=== PATIENT | female | born 1945 | race Caucasian/White ===

== ENCOUNTER 2017-08-01 07:55 | Day surgery (SDC) | payer MEDICARE, OTHER ==
[~2017-08-01] VITALS: Ht 172.7 cm; Wt 117.9 kg
[~2017-08-01 07:55] MED LIST: ASPIRIN EC81 MG PO; ATENOLOL25 MG PO; B COMPLETE1 EACH PO; CALCIUM500 MG PO; COQ-10100 MG PO; HYDROCODON-ACE1 EA11 PO; IRON325 M1 PO; LEVOTHYROXINE50 MCG PO; MAGNESIUM250 MG PO; MIRALAX17 GM PO; MULTI VITAMIN1 EACH PO; NORCO 10-325 T1 EACH PO; NORCO 7.5-3251 EACH PO; OMEPRAZOLE20 MG PO; OXYCODONE HCL5 MG PO; RANITIDINE HCL150 MG PO; TRAMADOL HCL50 MG PO; VITAMIN B122500 MCG PO; VITAMIN C500 M1 PO; VITAMIN D31000 UNI2 PO; XARELTO10 MG PO
--- NOTE | 2017-08-01 10:11 | NUR ---
08/01/17 Abilio1 Palmira Fragoso 1003 PT ARRIVED DROWSY ON 6L VIA MASK. PT TLAKNG TO RN, DENIES PAIN AND NAUSEA. RESP EVEN AND UNLABORED. 1007 MD AT BEDSIDE.
--- NOTE | 2017-08-01 12:00 | NUR ---
1030: PATIENT BACK IN DAY SURGERY ROOM FROM PACU. C/O PAIN 04/15. DESCRIBES THROAT PAIN "SORE AND SCRATCHY". DECLINES PAIN MEDS AT THIS TIME. IV SITE WNL. SCDs ON. CALL LIGHT WITHIN REACH. WATER PLACED AT BEDSIDE. 1115: PATIENT ASSISTED OOB AND TO BATHROOM. GAIT STEADY. VOID WITHOUT DIFFICULTY. GAIT STEADY BACK TO ROOM. PATIENT GETTING DRESSED. 1130: VS CHECKED. IV DC'D WNL. TIP INTACT. DRESSING APPLIED. DISCHARGE INSTRUCTIONS GIVEN TO PATIENT AND FAMILY. 1140: PATIENT DISCHARGED TO HOME WITH VIA WHEELCHAIR.
--- NOTE | 2017-08-01 16:06 | OR ---
[facility] [address] [place], [place] [address] Signed DATE OF OPERATION: 08/01/2017 SURGEON: Roberto Shah MD PREOPERATIVE DIAGNOSIS: Right throat and neck pain. POSTOPERATIVE DIAGNOSIS: Right throat and neck pain. PROCEDURE: Direct laryngoscopy, direct esophagoscopy and exam under anesthesia. ANESTHESIA: General orotracheal; ENERGY TRADER, Rosario Velez. PREOPERATIVE HISTORY: Jerel is a 71-year-old lady with a close to one year history of right ear, throat and neck pain. Exam in the office has been unremarkable. CAT scan of the neck also showed no pathology. She was taken to the operating room for exam under anesthesia, direct laryngoscopy, esophagoscopy to rule out significant lesions. OPERATIVE PROCEDURE AND FINDINGS: After informed consent, the patient was taken to the operating room and placed in the supine position where general orotracheal anesthesia was induced. The patient and the procedure were verified. Digital palpation of the right base of tongue and throat revealed no abnormalities. No suspicious lesions. The anterior commissure laryngoscope was then passed down to the hypopharynx and larynx. No abnormality seen, particularly focusing on the right pharyngeal wall, base of tongue area. No biopsies were taken. The cervical esophagoscope was then passed down to about 25 cm, also no abnormality seen. No biopsies. Scopes were removed. The patient was awakened, extubated and transported to the recovery room in good condition. COMPLICATIONS: No complications. BLOOD LOSS: Minimal. SPECIMEN: Electronically Signed By: ROBERTO SHAH MD 08/01/17 1606 PATIENT NAME: JEREL TREJO OPERATIVE REPORT DATE OF : 41 REPORT #: [id number] PHYSICIAN: ROBERTO SHAH MD PCP: GUS HILL DO REPORT IS CONFIDENTIAL AND NOT TO BE RELEASED WITHOUT AUTHORIZATION [address], [place] [address] Signed No specimen. DRAINS: No drains. Roberto Shah MD GC/MODL /[id number] Copies: ~ Electronically Signed By: ROBERTO SHAH MD 08/01/17 1606 PATIENT NAME: JEREL TREJO OPERATIVE REPORT DATE OF : 41 REPORT #: [id number] PHYSICIAN: ROBERTO SHAH MD PCP: GUS HILL DO REPORT IS CONFIDENTIAL AND NOT TO BE RELEASED WITHOUT AUTHORIZATION
== END 2017-08-01 11:40 | disposition home or self-care (01) ==
LOC: OPS 07:55 → DS 07:55 → OPS 09:00
PROVIDERS: Otolaryngology
PROC: 0DJ08ZZ Inspection of Upper Intestinal Tract, Via Natural or Artificial Opening Endoscopic (ICD-10-PCS; principal; 2017-08-01 09:00)
DX: R07.0 Pain in throat (principal); M54.2 Cervicalgia; E03.9 Hypothyroidism, unspecified; E66.01 Morbid (severe) obesity due to excess calories; M19.90 Unspecified osteoarthritis, unspecified site; I10 Essential (primary) hypertension; R68.84 Jaw pain; J34.2 Deviated nasal septum; Z79.899 Other long term (current) drug therapy; Z68.39 Body mass index [BMI] 39.0-39.9, adult
CPT/HCPCS: J0330; J1100; J2250; J2405; J2704; J3010; J7120

== ENCOUNTER 2018-05-15 08:37 | Day surgery (SDC) | payer MEDICARE, OTHER ==
[~2018-05-15] VITALS: Ht 172.7 cm; Wt 123.7 kg
--- NOTE | 2018-05-15 11:04 | NUR ---
05/15/18 1104 Christiane Saravia 1053 PT TO PACU AWAKE AND ALERT DENIES PAIN OR NAUSEA. O2 PLACED VIA NASAL CANNULA
--- NOTE | 2018-05-16 06:30 | OR ---
[facility] [address] [place], [place] [address] Signed DATE OF OPERATION: 05/15/2018 SURGEON: Ann Canseco MD PREOPERATIVE DIAGNOSES: 1. Screening. 2. Long redundant colon. POSTOPERATIVE DIAGNOSES: 1. Long redundant colon. 2. 5 mm polyp in distal hepatic flexure (100 cm). 3. Minimal internal anal skin tag x1. 4. Minimal distal sigmoid diverticulosis. PROCEDURE: Colonoscopy with hot biopsy. ESTIMATED BLOOD LOSS: None. INDICATIONS: Jerel is a 72-year-old female, who has been asked to see me for a followup screening colonoscopy. In 2007, her colonoscopy revealed a very long redundant colon. We had made it into her distal right colon, but could not advance the scope any further. Consequently, she did have a barium enema in followup. The barium enema was fine, that did show a long redundant colon. In the meantime, she says she is doing fine and has good bowel movements. There is no family history of colon cancer or polyps. She did have both her knees replaced and therefore we gave her preoperative antibiotics today. In the office, I had given her a pamphlet on colonoscopy. We did review that together at length. She understands the nature of that test along with the risks including, but not limited to gas bloating, crampy abdominal pain, bleeding, perforation, requiring surgery, and missed diagnosis. She also understands the need for the IV conscious sedation. She did tell me she wakes up easy with sedation and even woke up during her knee surgeries. Nevertheless, we decided we would schedule her with Versed and fentanyl once again. However, at 10 mg of Versed and 200 mcg of fentanyl she indeed was still waking up. Consequently, she might consider propofol in the future. She had expressed understanding and wished to proceed. PROCEDURE NOTE: Jerel was taken into our endoscopy suite and placed in the left lateral decubitus Electronically Signed By: ANN CANSECO MD 05/16/18 0630 PATIENT NAME: JEREL TREJO OPERATIVE REPORT DATE OF : 41 REPORT #: [id number] PHYSICIAN: ANN CANSECO MD PCP: GUS HILL DO REPORT IS CONFIDENTIAL AND NOT TO BE RELEASED WITHOUT AUTHORIZATION [facility] [address] [place] [id number] Signed position. She was given IV sedation with a total of 10 mg of Versed and 200 mcg of fentanyl. We did give her some preoperative antibiotics as well. A digital rectal exam was performed and this was unremarkable. The adult colonoscope was introduced and advanced under direct visualization of camera without difficulty. As before, the camera went quite nicely right up to the hepatic flexure at around 100 cm. There was just a tiny 4-5 mm sessile polyp. It was easily removed with the help of hot biopsy forceps. She has an unbelievable turn at the hepatic flexure and that took a few minutes and then we were just into the distal right colon based on palpation and our usual landmarks. We could easily see the heavy blue discoloration through the colon, hepatic flexure consistent with palpation in that area. We could see down the right colon quite nicely and she had an excellent prep. We could not convince ourselves of the ileocecal valve nor the appendiceal orifice. However, what we did see was quite long and it seemed to be quite unremarkable. We did give her additional sedation and used abdominal compression without success. We rotated into the supine position and back into the left lateral position and never could get the camera advance any further. It was buckling back in the left sigmoid and left colon. And as she stated she did wake up even with 10 mg of Versed and 200 mcg of fentanyl. Consequently, she might benefit from propofol for any future colonoscopies. After this, the scope was slowly withdrawn. The rest of the colon was quite clean. There was just a few tiny diverticula in the distal sigmoid colon. The rectum was unremarkable. Upon retroflexion of the scope, she had just a routine small internal anal skin tag. After this, the gas was suctioned out. The colonoscope removed. Jerel tolerated the procedure quite well. RECOMMENDATIONS: I will see Jerel back in my office in 7 to 14 days to review her biopsy results. Once again, she should consider a barium enema to evaluate that right colon. In the future for any additional colonoscopy, she should strongly consider propofol with monitored anesthesia care based on our description above. Ann Canseco MD ALB/MODL /[id number] cc: Ann Canseco MD Electronically Signed By: ANN CANSECO MD 05/16/18 0630 PATIENT NAME: JEREL TREJO OPERATIVE REPORT DATE OF : 41 REPORT #: [id number] PHYSICIAN: ANN CANSECO MD PCP: GUS HILL DO REPORT IS CONFIDENTIAL AND NOT TO BE RELEASED WITHOUT AUTHORIZATION [facility] [address] [facility] [place], [place] [address] Signed DO Melo Patel MD Copies: ANN CANSECO MD, ARIAN DO ALSAMARA, MERSHED MD ~ Electronically Signed By: ANN CANSECO MD 05/16/18 0630 PATIENT NAME: EJREL TREJO OPERATIVE REPORT DATE OF : 41 REPORT #: [id number] PHYSICIAN: ANN CANSECO MD PCP: GUS HILL DO REPORT IS CONFIDENTIAL AND NOT TO BE RELEASED WITHOUT AUTHORIZATION
== END 2018-05-15 11:35 | disposition home or self-care (01) ==
LOC: OPS 08:37 → DS 08:37 → OPS 09:45
PROVIDERS: Colon & Rectal Surgery
PROC: 0DBL8ZX Excision of Transverse Colon, Via Natural or Artificial Opening Endoscopic, Diagnostic (ICD-10-PCS; principal; 2018-05-15 09:45)
DX: Z12.11 Encounter for screening for malignant neoplasm of colon (principal); K63.5 Polyp of colon; K64.8 Other hemorrhoids; K64.4 Residual hemorrhoidal skin tags; K57.30 Diverticulosis of large intestine without perforation or abscess without bleeding; Q43.8 Other specified congenital malformations of intestine; I10 Essential (primary) hypertension; E55.9 Vitamin D deficiency, unspecified; E03.9 Hypothyroidism, unspecified; E66.9 Obesity, unspecified; J32.9 Chronic sinusitis, unspecified; K21.9 Gastro-esophageal reflux disease without esophagitis; Z79.899 Other long term (current) drug therapy
CPT/HCPCS: 99153; G0500; J2250; J3010; J7120

== ENCOUNTER 2018-07-11 15:28 | Emergency (ER) | payer MEDICARE, OTHER ==
[~2018-07-11] VITALS: Ht 170.2 cm; Wt 117.9 kg
[2018-07-11] MEDS ORDERED: KEFLEX500 MG PO (15:47)
[2018-07-11] MEDS ORDERED: TURMERIC500 M2 PO (15:48)
== END 2018-07-11 21:32 | disposition home or self-care (01) ==
LOC: ED 15:28
DX: K52.9 Noninfective gastroenteritis and colitis, unspecified (principal); E03.9 Hypothyroidism, unspecified; K21.9 Gastro-esophageal reflux disease without esophagitis; Z90.710 Acquired absence of both cervix and uterus; Z90.89 Acquired absence of other organs; Z79.899 Other long term (current) drug therapy
CPT/HCPCS: 36415; 74177; 80053; 81001; 85025; 99284-25; J2270; J2405; J2550; J7030; Q9967

== ENCOUNTER 2020-06-28 11:13 | Emergency (ER) | payer MEDICARE, OTHER ==
[~2020-06-28] VITALS: Ht 170.2 cm; Wt 117.9 kg
[~2020-06-28 11:13] MED LIST changes: +TURMERIC500 M2 PO
[2020-06-28] MEDS ORDERED: CEPHALEXIN500 MG PO ×2 (11:32→11:47)
== END 2020-06-28 12:00 | disposition home or self-care (01) ==
LOC: ED 11:13
DX: L03.116 Cellulitis of left lower limb (principal); E03.9 Hypothyroidism, unspecified; K21.9 Gastro-esophageal reflux disease without esophagitis; Z79.899 Other long term (current) drug therapy
CPT/HCPCS: 99283

== ENCOUNTER 2021-04-18 13:17 | Emergency (ER) | payer OTHER, MEDICARE ==
[~2021-04-18] VITALS: Ht 170.2 cm; Wt 117.9 kg
[~2021-04-18 13:17] MED LIST changes: +CEPHALEXIN500 MG PO
== END 2021-04-18 16:51 | disposition home or self-care (01) ==
LOC: ED 13:17
DX: S30.0XXA Contusion of lower back and pelvis, initial encounter (principal); S09.90XA Unspecified injury of head, initial encounter; E03.9 Hypothyroidism, unspecified; K21.9 Gastro-esophageal reflux disease without esophagitis; Z79.899 Other long term (current) drug therapy; W55.32XA Struck by other hoof stock, initial encounter
CPT/HCPCS: 70450; 72100; 81001; 99284-25; A9270

== ENCOUNTER 2024-10-31 17:05 | Observation (INO) | payer MEDICARE ==
[~2024-10-31] VITALS: Ht 170.2 cm; Wt 113.3 kg
[2024-10-31 21:26] LABS: BASOPHILS 0.5 % (0.1-1.2); EOSINOPHILS 0.3 % (0.7-5.8); LYMPHOCYTES 13.9 % (19.3-51.7); MCH 31.1 PG (25.6-32.2); MCHC 33.3 g/dL (32.2-35.5); MCV 93.4 fL (79.4-94.8); MONOCYTES 6.1 % (4.7-12.5); NEUTROPHILS 78.9 % (34.0-71.1); RBC 3.63 M/uL (3.93-5.22)
[2024-10-31 21:36] LABS: INR 1.07 (0.80-1.30); PROTIME 13.5 Sec (11.2-14.2)
[2024-10-31 21:42] LABS: ALT (SGPT) 9.0 U/L (14-59); AST (SGOT) 14.0 U/L (15-37); GLOMERULAR FILTRATION RATE,EST 87.0 mL/min (>60); PROTEIN, TOTAL 7.5 g/dL (6.4-8.2); UREA NITROGEN 14.0 mg/dL (7-18)
--- NOTE | 2024-10-31 22:52 | NUR ---
REPORT RECEIVED FROM LEONIE RN. PATIENT TRANSPORTED TO [facility] RM 115 VIA WHEELCHAIR. ORIENTED TO ROOM, ALL QUESTIONS ANSWERED, ASSESSMENT COMPLETED. RESPIRATIONS EVEN AND UNLABORED, PATIENT DENIES NEED FOR PAIN MEDICINE, STATES 2/10 PAIN WHEN RESTING. SHE DENIES ANY FURTHER NEEDS, GIVEN FRESH WATER, CALL LIGHT IN REACH
[2024-10-31 22:53] VITALS: BP 145/66
[2024-10-31] MEDS ORDERED: HYDROCODONE/ACETA 5/325 TAB PO PRN (23:00)
[2024-11-01] VITALS (7 sets, daily range): BP systolic 122–142; BP diastolic 57–68
--- NOTE | 2024-11-01 00:56 | NUR ---
ROUNDED ON PATIENT, PATIENT RESTING WITH EYES CLOSED, RESPIRATIONS EVEN AND UNLABORED. NO NEEDS IDENTIFIED, CALL LIGHT IN REACH. CPOX AT BEDSIDE.
[2024-11-01 01:43] LABS: BLOOD/HGB, URINE NEGATIVE (Negative); KETONE, URINE NEGATIVE (Negative); LEUK ESTERASE, URINE NEGATIVE (negative); NITRITE, URINE NEGATIVE (negative)
--- NOTE | 2024-11-01 03:31 | NUR ---
ROUNDED ON PATIENT, RESPIRATIONS EVEN AND UNLABORED. PATIENT DENIES ANY NEEDS, CALL LIGHT IN REACH.
--- NOTE | 2024-11-01 05:40 | NUR ---
VS OBTAINED AND RECORDED, PATIENT RESTING IN BED, WOKE TO RN ENTERING ROOM. RESPIRATIONS EVEN AND UNLABORED. PT DENIES SOB, REPORTS 2/10 PAIN. PATIENT DENIES FURTHER NEEDS, CPOX AT BEDSIDE. CALL LIGHT IN REACH
[2024-11-01] MEDS ORDERED: HYDROXYCHLOROQ100 MG PO (08:08)
[2024-11-01] MEDS ORDERED: VITAMIN D325 MCG PO (08:08)
--- NOTE | 2024-11-01 08:08 | NUR ---
MED REC COMPLETE
--- NOTE | 2024-11-01 10:06 | NUR ---
Patient awake, alert and oriented x3, no acute distress. Patient has notable scattered bruising. Patient reports painful ribs, tolerable at this time. Ice packs provided for comfort to her wrists. Patient denies needs at this time. Personal supplies and call light within reach.
[2024-11-01] MEDS ORDERED: IBUPROFEN 600 MG TAB PO PRN (11:15)
[2024-11-01] MEDS ORDERED: HYDROCODONE/ACETA 5/325 TAB PO PRN (11:15)
--- NOTE | 2024-11-01 11:28 | NUR ---
Patient sitting up in chair visiting with friends, no acute distress. Patient denies shortness of breath at this time, respirations non labored, sp02 97% on room air. Ibuprofen 600mg po admin at this time for reported rib discomfort, 04/15.
--- NOTE | 2024-11-01 11:35 | NUR ---
Patient instructed to call for assistance if she needs to get up, she reports her understanding.
--- NOTE | 2024-11-01 11:50 | NUR ---
INTO SEE PATIENT. PATIENT PERSONAL HEALTH INFORMATION REVIEWED. PATIENT LIVES AT HOME ALONE BUT HAS A BIG FAMILY CLOSE BY FOR SUPPORT. PATIENT USES A CANE BASELINE BUT HAS A WALKER ALSO. SHE DRIVES. DOES NOT USE OXYGEN OR CPAP. PATIENT DENIES DIFFCULTY PAYING UTLITIES OR OBTAINING FOOD.
--- NOTE | 2024-11-01 12:21 | NUR ---
UR CLINICAL REVIEW: 2 MN FOR VERSALUS-PER NANNY/HOUSEHOLD MANAGER MEETS OBS FOR FALL WITH MULTIPLE RIB FX WITH NEED FOR PAIN CONTROL AND MONITORING MEDICARE OBS 10/31/24 @ 9063 ORDER MATCHES REG DISCHARGE TO HOME WHEN STABLE MD ANTICIPATE POSSIBLE DC THIS AFTERNOON PENDING PATIENT PROGRESS AND PAIN CONTROL.
[2024-11-01] MEDS ORDERED: ACETAMINOPHEN 500 MG TAB PO SCH (14:00)
--- NOTE | 2024-11-01 14:33 | NUR ---
Patient sitting up in chair, no distress. Patient denies shortness of breath, respirations non labored, sp02 94% on room air. Admin scheduled tylenol 1000mg po. Patient denies further needs.
[2024-11-01] MEDS ORDERED: IBUPROFEN600 MG PO (17:12)
[2024-11-01] MEDS ORDERED: HYDROCODON-ACE1 EA10 PO (17:12)
[2024-11-01] MEDS ORDERED: ACETAMINOPHEN500 MG PO (17:13)
--- NOTE | 2024-11-03 13:51 | HP ---
[facility] [address] [place], [place] [address] Signed ADMISSION DATE: 10/31/2024 REASON FOR ADMISSION: Multiple rib fractures from ground level fall. HISTORY: This 79-year-old white woman lives [address] from [facility]. She lives alone, but has family 3-4 miles away from her. The patient was going down some steps from a deck using her four point cane and stumbled, falling face forward. She suffered a contusion to her chin and bilateral wrist pain and general chest wall pain. This happened earlier in the day yesterday. She had enough progression of her symptoms that she presented to the emergency room where she was initially evaluated by the emergency room physician and care assumed by Dr. Mercedes Plunkett. Imaging studies include a CT of the head and neck showed multilevel moderate to severe degenerative change of the cervical spine. No intracranial injury or bleeding; and CT scan of the abdomen showing a proximal left thigh contusion and mild L2-L3 superior endplate compressions, age-indeterminate. Maxillofacial imaging was negative. A CT scan of her chest showed acute nondisplaced fractures of the anterolateral 6th through 10th ribs on the right side and nondisplaced fractures of the anterior 5th and 6th ribs on the left side. She had no pneumo or hemothorax. There were gallstones, but no sign of other abnormality, specifically splenic or hepatic injury. Lab studies were essentially normal. Hematocrit 33.9. Liver enzymes normal. Basic metabolic normal. At present, she feels somewhat sore, but has no shortness of breath, hemoptysis, or other issues. Her wrists are uncomfortable and slightly swollen. Imaging studies were said to be negative. I will need to check those. REVIEW OF SYSTEMS: She denies any shortness of breath or chest pain or hemoptysis. Has no blood per rectum. PHYSICAL EXAMINATION: GENERAL: Pleasant elderly woman who looks to be in surprisingly little discomfort. VITAL SIGNS: Height 5 feet 7 inches, weight is 113 kg, BMI 39.1. NECK: Trachea is midline. She has no crepitus. She has no jugular venous distention. CHEST: Clear. HEART: Regular without murmur. ABDOMEN: Obese, but soft. There is no palpable mass. EXTREMITIES: Show soreness and swelling of both wrists. The mobility is maintained. Lower extremities show chronic venous stasis disease. NEUROLOGIC: Shows cranial nerves to be intact. She moves both upper extremities without problem and lower extremities as well. Electronically Signed By: SHIRLEY MOSCOSO MD 11/03/24 1351 PATIENT NAME: JEREL TREJO HISTORY AND PHYSICAL DATE OF : 41 REPORT #: [id number] PHYSICIAN: SHIRLEY MOSCOSO MD PCP: REAGAN VALENCIA MD REPORT IS CONFIDENTIAL AND NOT TO BE RELEASED WITHOUT AUTHORIZATION [address] [address] Signed LAB STUDIES: As discussed. ASSESSMENT: The patient has a ground level fall with injuries to include a contusion of her chin, rib fractures on the right and left, incidental findings of gallstones, but without likely acute cholecystitis. She was admitted for pain control, which seems to be relatively well accomplished at this time. Indeed, she feels like she might be able to go home today. We will revisit this later in the day and possibly for going home. She is tolerating a regular diet. I will get a chest x-ray to assure that there has been no development of pneumothorax, but it is unlikely. MD LEO Jacobs/EVANGELISTL /[id number] cc: Dr. Dimitrios Sanchez Copies: ~ Electronically Signed By: SHIRLEY MOSCOSO MD 11/03/24 1351 PATIENT NAME: JEREL TREJO HISTORY AND PHYSICAL DATE OF : 41 REPORT #: [id number] PHYSICIAN: SHIRLEY MOSCOSO MD PCP: REAGAN VALENCIA MD REPORT IS CONFIDENTIAL AND NOT TO BE RELEASED WITHOUT AUTHORIZATION
== END 2024-11-01 18:16 | disposition home or self-care (01) ==
LOC: ED 17:05 → MS 17:07
PROVIDERS: Emergency Medicine; ADMIT Surgery; ATTEND Surgery
DX: S22.43XA Multiple fractures of ribs, bilateral, initial encounter for closed fracture (principal); S00.83XA Contusion of other part of head, initial encounter; S70.12XA Contusion of left thigh, initial encounter; M25.532 Pain in left wrist; M25.531 Pain in right wrist; R07.89 Other chest pain; E03.9 Hypothyroidism, unspecified; Z79.890 Hormone replacement therapy; W10.8XXA Fall (on) (from) other stairs and steps, initial encounter
CPT/HCPCS: 36415; 70450; 70486; 71045; 71250; 72125; 73110; 74177; 80053; 81003; 83605; 85025; 85610; A9270; G0378; Q9967

== ENCOUNTER 2024-12-09 13:38 | Emergency (ER) | payer MEDICARE, OTHER ==
[~2024-12-09] VITALS: Ht 170.2 cm; Wt 113.3 kg
--- OUTSIDE RECORDS SUMMARY | ~2024-12-09 | XMS | Continuity of Care Document ---
Demographics + + + | Address | [address] | | | [place] [address] | + + + | Preferred Language | Unknown | + + + | Marital Status | | + + + | Zoroastrian Affiliation | Unknown | + + + | Race | White | + + + | Ethnic Group | Not or | + + + Author + + + | Author | [facility] | + + + | Organization | [facility] | + + + | Address | [address] | | | [place] [address] | + + + | Phone | | + + + Care Team Providers + + + + | Care Drag Seiner Name | Role | Phone | + + + + Unavailable | Unavailable | + + + + Allergies No information. Encounters No information. Functional Status No information. Immunizations No information. Medications + + + + | date | description | facility | + + + + | (no date) | OXYCODONE HCL | [facility] | | | | [facility] | + + + + | (no date) | RIVAROXABAN | [facility] | | | | [facility] | + + + + | (no date) | Turmeric Root Extract | [facility] | | | | [facility] | + + + + | (no date) | CYANOCOBALAMIN (VITAMIN | [facility] | | | B-12) | [facility] | + + + + | (no date) | ATENOLOL | [facility] | | | | [facility] | + + + + | (no date) | OMEPRAZOLE | [facility] | | | | [facility] | + + + + | (no date) | RANITIDINE HCL | [facility] | | | | [facility] | + + + + | (no date) | UBIDECARENONE | [facility] | | | | [facility] | + + + + | (no date) | ASCORBIC ACID | [facility] | | | | [facility] | + + + + | (no date) | CALCIUM CARBONATE | [facility] | | | | [facility] | + + + + | (no date) | ASPIRIN | [facility] | | | | [facility] | + + + + | (no date) | CEPHALEXIN | [facility] | | | | [facility] | + + + + | (no date) | FERROUS SULFATE | [facility] | | | | [facility] | + + + + | (no date) | MAGNESIUM OXIDE | [facility] | | | | [facility] | + + + + | (no date) | TRAMADOL HCL | [facility] | | | | [facility] | + + + + | (no date) | HYDROCODONE | [facility] | | | BIT/ACETAMINOPHEN | [facility] | + + + + | (no date) | POLYETHYLENE GLYCOL 3350 | [facility] | | | | [facility] | + + + + | (no date) | CHOLECALCIFEROL (VITAMIN | [facility] | | | D3) | [facility] | + + + + | (no date) | LEVOTHYROXINE SODIUM | [facility] | | | | [facility] | + + + + Problems No information. Procedures No information. Results/Labs No information. Social History +--------+ + + | date | description | facility | +--------+ + + Vital Signs No information."
[~2024-12-09 13:38] MED LIST changes: +ACETAMINOPHEN500 MG PO; +HYDROCODON-ACE1 EA10 PO; +HYDROXYCHLOROQ100 MG PO; +IBUPROFEN600 MG PO; +VITAMIN D325 MCG PO
[2024-12-09] MEDS ORDERED: BUTALB/ACETAMINOPHEN/CAFFEINE 1 EACH CAP PO ONE (16:00)
[2024-12-09] MEDS ORDERED: KETOROLAC TROMETHAMINE 30 MG/ML VIAL IM ONE (16:00)
[2024-12-09 16:32] VITALS: BP 167/60
== END 2024-12-09 16:30 | disposition home or self-care (01) ==
LOC: ED 13:38
DX: S52.502A Unspecified fracture of the lower end of left radius, initial encounter for closed fracture (principal); E03.9 Hypothyroidism, unspecified; K21.9 Gastro-esophageal reflux disease without esophagitis; W19.XXXA Unspecified fall, initial encounter; Z79.899 Other long term (current) drug therapy
CPT/HCPCS: 73110; 96372; 99283-25; J1885